=== PATIENT | male | born 1935 | race Caucasian/White ===

== ENCOUNTER 2016-04-24 17:42 | Emergency (ER) | payer MEDICARE, OTHER ==
[~2016-04-24 17:42] MED LIST: ACTOS DPS30 MG PO; BACTRIM DS DPS1 TAB PO; CALCIUM + VITA1 EACH PO; COZAAR DPS25 MG PO; FISH OIL 1,2001 EACH PO; GLUCOPHAGE1000 MG PO; GLUCOTROL DPS5 MG PO; LASIX DPS20 MG PO; OCUVITE SOFTGE1 EACH PO; OSTEO BI-FLEX1 EAC1 PO; PRAVACHOL80 MG PO; PRILOSEC40 MG PO; PROSCAR DPS5 MG PO; PROVENTIL HFA6.7 GM IH; SYMBICORT160 MCG/6 IH; SYSTANE 0.3-0.440 ML OU; VALTREX1000 MG PO; XALATAN2.5 ML OU
--- NOTE | 2016-04-25 13:07 | ER ---
ADMIT: 04/24/2016 RM/LOC: ER [facility] MR#: [id number] [address] [address] [place] RHYS Hemanth [address] [place] [address] Emergency Room Report SEX: M AGE: 81 : 1935 DATE: 04/24/2016 HISTORY OF PRESENT ILLNESS: The patient is an 81-year-old male with past medical history of COPD, hypertension, diabetes, ALL, who is getting chemotherapy. Last chemo session was on Tuesday, on 20 of April, came here because of the last 3 days, he felt dizzy while standing up. The patient denied any vertigo or spinning room around. The patient denied any head trauma. The patient denied any fever at home. Also, the patient mentioned he has shortness of breath at baseline and he has a history of COPD. The patient denied any increase in the sputum. PHYSICAL EXAMINATION: VITAL SIGNS: The patient had O2 saturation of 93% on room air. The patient was afebrile and heart rate was normal and blood pressure systolic was 140s. GENERAL: The patient was in no distress or pain. He is sitting in the bed. Orthostatic vitals are negative. Mucous membranes are slightly dry. HEAD AND NECK: Noncontributory. CHEST: Bilateral mild wheezing without any crackles. S1 and S2 are normal without any murmurs. ABDOMEN: Soft and nontender. SKIN: There are no skin rashes. There is no petechia or ecchymosis. EXTREMITIES: Nontender and there is no swelling. The patient states he previously had swelling which decreased with increased dosage of the Lasix 60 mg daily p.o. The rest of the physical exam was noncontributory. LABORATORY DATA: EKG did not show any ischemic changes or arrhythmia. Cardiac enzymes are negative. White BC from 6.3 changed to 1.7, from December 18 to April 24, with absolute neutrophil count of 500, which could be expected after the vincristine chemotherapy. The patient's blood sugar was 550, considering patient has 60 mg of prednisone after the chemotherapy, the patient received IV fluid 1 L and 5 units of regular insulin. Blood sugar was rechecked. Chest x-ray did not show any changes from April 20. The rest of the lab works were noncontributory. The patient had no signs of infection. Dr. Aguayo, oncologist was contacted, he is the treating physician for this patient. After discussing the case and going through all the lab works, he agreed to plan. The patient could be discharged to home with return precautions, follow up with Dr. Aguayo's office on Tuesday. Plan was discussed with the patient and he agreed upon it and he acknowledged and understood the plan. Eusebia Samayoa MD/ nathan JOB #: [id number] CC: Ramses Drummond MD, Attending Physician Wayne Currie MD, Family Physician
== END 2016-04-24 21:11 | disposition home or self-care (01) ==
LOC: ER 17:42
DX: E86.0 Dehydration (principal); R42 Dizziness and giddiness; E11.9 Type 2 diabetes mellitus without complications; I10 Essential (primary) hypertension; Z88.8 Allergy status to other drugs, medicaments and biological substances; Z79.01 Long term (current) use of anticoagulants; Z79.899 Other long term (current) drug therapy

== ENCOUNTER → 2016-05-05 | Outpatient (CLI) | payer MEDICARE, OTHER | END | disposition home or self-care (01) | LOC: RAD.S 10:00 | DX: C91.00 Acute lymphoblastic leukemia not having achieved remission (principal); J43.9 Emphysema, unspecified; J98.11 Atelectasis ==

== ENCOUNTER 2016-05-08 13:41 | Inpatient (IN) | payer MEDICARE, OTHER ==
[~2016-05-08] VITALS: Ht 188 cm; Wt 110.4 kg
--- NOTE | ~2016-05-08 | ECH ---
Transthoracic Echocardiography Report (TTE) Demographics Patient Name RHYS KOENIG Date of Study 05/10/2016 Patient Number [id number] Visit Number [id number] Date of 1935 Room Number 412 Accession Number [id number] Gender Male Age 81 year(s) Referring Rene Squires Hemanth Fitness Technician Jessie Burrell [facility] Physician MD Kush Garcia Physician Interpreting Rene Fisherosmel Saxena Engineering Technical Analyst Physician Supervising Ordering Physician Kush Villa MD, MD/P Nurse Stress Sign Hanger Supervisor Conclusions Summary Technically fair exam. The estimated left ventricular ejection fraction is 65%. Mild left ventricular hypertrophy. IVC dilated but normal inspiratory collapse. Procedure Type of Study TTE procedure:Echo Complete SF. Procedure Date Date: 05/10/2016 Start: 10:47 AM Technical Quality: Fair due to poor acoustical window. Indications:Atrial fibrillation, Shortness of breath and Hypertension. Appropriate Use Criteria: 9 Height: 74 inches Weight: 229 pounds BSA: 2.3 m Rhythm: Sinus bradycardia HR: 60 bpm BP: 118/51 mmHg M-Mode/2D Measurements LV Diastolic Dimension: 4.34 cm LV Systolic Dimension: 3.13 cm LV Septum Diastolic: 1.03 cm LV PW Diastolic: 1.12 cm AO Root Dimension: 2.92 cm Cardiac Output: 4.98 l/min LA Dimension: 3.53 cm Cardiac Index: 2.17 l/min*m LA volume index: 27 ml/m IVC Inspiration: 1.06 cm LVOT: 1.97 cm RV Base: 3.8 cm LVOT VTI: 27.23 cm RV Mid: 3.3 cm LV Stroke volume: 82.96 ml RV Length: 6.5 cm LV Stroke volume index: 36.07 ml/m TDI-S': 13 cm/s Doppler Measurements AV Peak Velocity: 1.39 m/s MV Peak E-Wave: 1.03 m/s AV Peak Gradient: 7.73 mmHg MV Peak A-Wave: 0.81 m/s AV Mean Gradient: 4.19 mmHg MV E/A Ratio: 1.27 LVOT Peak Velocity: 1.32 m/s MV P1/2t: 59.4 msec AV Area (Continuity):2.86 cm MV Deceleration Time: 244.5 msec MV Area (PHT): 3.71 cm PV Peak Velocity: 1.04 m/s PV Peak Gradient: 4.32 mmHg RA Area: 14.9 cm Findings Left Ventricle The left ventricle is normal in size . Mild left ventricular hypertrophy. Diastolic assessment reveals normal relaxation. Right Ventricle Normal right ventricle structure and function. Left Atrium Normal left atrial size. Right Atrium Normal right atrial size. Mitral Valve Normal mitral valve structure and function. Trivial mitral regurgitation by color Doppler. Aortic Valve The aortic valve was not well imaged but appears mildly sclerotic. There is no aortic regurgitation by color Doppler. Tricuspid Valve Normal tricuspid valve structure and function. Pulmonic Valve The pulmonic valve is not well visualized. Pericardial Effusion No evidence of pericardial effusion. Miscellaneous Visualized portions of the aortic root and ascending aorta appear normal in size. IVC dilated but good collapse. Pleural Effusion No evidence of pleural effusion. Contractility Score LV regional wall motion:(0-Non visualized 1-Normal 2-Hypokinesis 3-Akinesis 4-Dyskinesis 5-Aneurysm) Signature
--- NOTE | 2016-05-11 12:24 | HP ---
ADMIT: 05/08/2016 RM/LOC: 412 [facility] MR#: [id number] [address] [address] RHYS KOENIG [address] [place] [address] History and Physical SEX: M AGE: 81 : 1935 DATE OF SERVICE: CHIEF COMPLAINT: Fever and weakness. HISTORY OF PRESENT ILLNESS: Mr. Koenig is an 81-year-old male, who generally gets his care with Dr. Currie, who unfortunately has a history of acute leukemia. He follows with Oncology, Dr. Aguayo. He had been receiving chemotherapy for this, but over the last 1 week, has had increasing weakness and shortness of breath. He has been evaluated by his oncologist over the past 1 week. This has included a CT scan of the chest as well as an MRI of the brain; however, this was done at an outside facility. His reports that yesterday she spoke with his oncologist and Rhys was actually feeling better. However, shortly after that discussion, Rhys spiked a fever of 101 Fahrenheit. She gave him some [id number] antipyretic medication and the fever did improve. He slept well through the evening, however, today, has continued to be very fatigued and sleeping most of the day. He has been running low-grade fevers just over 100 throughout today. He has had difficulty walking due to generalized weakness. When his had a difficult time waking him, she thought it was best that they come to the Emergency Department for further evaluation. Upon evaluation in the Emergency Department, labs were obtained and was concerning for a significant decrease in his hemoglobin to 5.4, which on May 04 just four days ago was 10.8. Rhys denies any obvious bleeding. He has had no emesis. He has had no hemoptysis. He denies any melena or blood in his stool. He has had some dark color to his urine, but no mo bleeding. No bruising or other skin lesions either. With this finding along with his weakness and shortness of breath, it was felt best that he be admitted for further evaluation and treatment. PAST MEDICAL HISTORY: 1. Acute lymphoblastic leukemia. He has routinely followed with Oncology and has received chemotherapy in the last several weeks. 2. Macular degeneration with history of right central retinal vein occlusion. 3. Gastroesophageal reflux disease with a history of a bleeding ulcer greater than 50 years ago. 4. Chronic hypertension. 5. Diabetes mellitus, type 2, not on insulin where his last hemoglobin in December of 2015 was 7.3. 6. COPD. 7. BPH. 8. Hyperlipidemia. 9. Chronic nocturnal hypoxia requiring 3 to 4 L of oxygen at night. 10.Chronic steroid use with prednisone. MEDICATIONS: 1. Metformin 1000 mg b.i.d. 2. Pravachol 80 mg at bedtime. 3. Prilosec 40 mg daily. 4. Losartan 25 mg daily (Of note, his reports his blood pressures have ADMIT: 05/08/2016 RM/LOC: 412 [facility] MR#: [id number] [address] [address] [place] [address] History and Physical SEX: M AGE: 81 : 1935 been low over the last 1 week, but she has not been giving his losartan). 5. Actos 30 mg daily. 6. Glipizide 5 mg at breakfast and 2.5 mg at dinner. 7. Proventil p.r.n. 8. Calcium 1000 mg twice daily. 9. Vitamin D 1000 International Units twice daily. 10.Multivitamin daily. 11.Osteo Bi-Flex daily. 12.Symbicort 160 mcg twice daily. 13.Finasteride 5 mg daily. 14.Fish oil 1000 mg twice daily. 15.Latanoprost 1 drop to each eye daily. ALLERGIES: NO KNOWN MEDICAL ALLERGIES. FAMILY HISTORY: His father from a stroke. There is also a family history of diabetes. SOCIAL HISTORY: The patient is a former smoker. He lives at home with his . He has several other family members who are involved in his care and are present with him today. Generally, he is able to maintain his own activities of daily living. REVIEW OF SYSTEMS: As per HPI, otherwise reviewed and negative. PHYSICAL EXAMINATION: VITAL SIGNS: Stable. He is afebrile. Blood pressure and heart rate are within normal limits. Please see electronic record for full details. GENERAL: The patient is awake, alert, no acute distress. He does appear sleepy, but does remain awake for his entire history and exam. HEENT: Within normal limits. HEART: Regular rate and rhythm. I do not appreciate any murmur. LUNGS: Diminished throughout, but otherwise clear. I do not appreciate any crackles or wheezes. No accessary muscle use. ABDOMEN: Obese, soft, nontender, nondistended. He does have a soft tissue mass to the left anterior abdominal wall that is nontender and the patient reports is chronic and unchanged. No organomegaly is appreciated, although difficult to assess secondary to body size. Normal bowel sounds. EXTREMITIES: Warm and dry. No edema. NEUROLOGIC: Cranial nerves II through XII grossly intact. No focal neurologic deficit, although I would report his strength at 4/5 in the lower extremities. This is equal bilaterally. SKIN: No obvious rash or lesion. No petechiae or bruising. LABORATORY DATA: Please see electronic record for full details, but of note, his creatinine was within normal limits at 1.0. Blood sugar mildly elevated at 244. LFTs are within normal limits. Magnesium is normal at 1.9. Troponin is less than 0.015. White blood cell count is 3.6 with 700 neutrophils. ADMIT: 05/08/2016 RM/LOC: 412 [facility] MR#: [id number] [address] [address] RHYS KOENIG [address] [place] [address] History and Physical SEX: M AGE: 81 : 1935 Hemoglobin is 5.4 (four days ago on May 04, it was 10.8). Platelet count is 51 down from 61 four days ago. Sodium is slightly low at 132, potassium is normal at 4.6. Urinalysis is unremarkable. Influenza was negative. Procalcitonin was 0.17. EKG shows sinus rhythm. Blood cultures and urine cultures are obtained and pending. IMAGING: Chest x-ray today shows a possible right upper lobe pneumonia. I also reviewed a chest CT scan from 05/05/2016, which shows improvement of adenopathy, but marked emphysematous change. No PE, but there were tiny bilateral distal emboli. ASSESSMENT AND PLAN: 1. Acute anemia. This is suspicious for bleed, but no obvious signs of gastrointestinal bleed at this time. We will start him on an IV PPI and consult General Surgery as well as his usual printing machine operator for further recommendations and evaluation. He will receive 2 units of packed red blood cells, and we will repeat hemoglobin overnight and in the morning to trend. 2. Shortness of breath with right upper lobe pneumonia. He has been started on the pneumonia protocol through the Emergency Department. We will continue with these IV antibiotics. He is also on chronic steroids with prednisone, so we will give IV steroids at this time. We will monitor his procalcitonin and chest x-rays. 3. Generalized weakness. We will have Physical Therapy and Occupational Therapy and Social Work speak with the patient. Hopefully as we treat his anemia and his pneumonia, strength will improve as well. 4. Leukemia. We will consult his general oncologist and appreciate any ADMIT: 05/08/2016 RM/LOC: 412 [facility] MR#: [id number] [address] [facility] [address] [place] [id number] RHYS KOENIG [facility] [place] [address] History and Physical SEX: M AGE: 81 : 1935 recommendations they may have. 5. Type 2 diabetes mellitus. We will monitor blood sugars throughout admission. We will have sliding scale insulin. We will hold his metformin pending any need for contrast. 6. Chronic hypertension. We will monitor blood pressures closely. With this time, I more concerned that he may get hypotensive given his acute illness. We will hold his antihypertensive should this be the case. He is also getting IV fluids to treat as well. 7. Disposition. The patient will be treated in the progressive care unit. We will transfer care to his usual primary care physician, Dr. Currie in the morning. 8. Code status. The patient wishes to be DNR/DNI. Karma Irwin MD/ nathan JOB #: [id number] CC: Wayne Currie, Attending Physician Wayne Currie, Family Physician
--- NOTE | 2016-05-11 17:50 | ER ---
ADMIT: 05/08/2016 RM/LOC: 412 [facility] MR#: [id number] [address] [address] RHYS KOENIG [address] [place] [address] Emergency Room Report SEX: M AGE: 81 : 1935 DATE: 05/08/2016 ADDENDUM: HISTORY OF PRESENT ILLNESS: This patient comes into the ER because he has been weak and short of breath over the last week. He sees Dr. Aguayo every two weeks, he is currently being treated for leukemia. He has been weak. They recently did a CT scan of his chest, which showed possibly some small emboli, they decided not to treat it according to his , and a recent MRI of his head was normal. He denies any coughs, but yesterday, they thought he did have a fever, he seems to be very unsteady and today, he seems slightly confused at times. He has had a decreased appetite, but this has been normal for him. PHYSICAL EXAMINATION: GENERAL: He is pale, but does answer questions and speaks appropriately. VITAL SIGNS: His temp here was 99.1. His O2 sat was 98% and blood pressure was 117/67. LABORATORY AND X-RAY DATA: His CBC came back with hemoglobin of 5.4, last hemoglobin was 10, so this is very low for him, and platelet count was 51. Chest x-ray showed a questionable left lower lobe pneumonia. I did consult with Dr. Hastings concerning treatment of this patient. I ordered 2 units type and cross. I spoke with Dr. Irwin, she came in to examine the patient. DIAGNOSES: 1. Anemia. 2. Weakness. 3. Leukemia. 4. Possible left lower lobe pneumonia. DINA Davis / Shaquille Hastings MD / modcharline JOB #: [id number] CC: Wayne Currie MD, Attending Physician Wayne Currie MD, Family Physician
--- NOTE | 2016-05-14 09:47 | CO ---
ADMIT: 05/08/2016 RM/LOC: 412 [facility] MR#: [id number] [address] [address] RHYS KOENIG [address] [place] [address] Consultation SEX: M AGE: 81 : 1935 DATE OF CONSULTATION: 05/09/2016 ATTENDING PHYSICIAN: Wayne Currie CONSULTING PHYSICIAN: Niranjan Campbell MD REASON FOR CONSULTATION: 1. t-ALL. 2. Severe anemia with acute drop in hemoglobin. HISTORY OF PRESENT ILLNESS: Mr. Koenig is an 81-year-old, pleasant gentleman, a patient of my colleague, Dr. 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 When he was admitted, his hemoglobin was 5 g, he dropped this significantly, which I doubt it is a good number, but anyway he is very weak and tired, so we need to give him blood transfusion. He is receiving 2 units of blood. Oncology was consulted to further evaluate the acute drop in hemoglobin count as well as his T-cell acute leukemia. He is on antibiotics as per primary doctor. PAST MEDICAL HISTORY: T-cell acute leukemia, he was on vincristine and steroid, vincristine does not hold because of the severe fatigue and tiredness as well as not having a good quality of life from the treatment. Multiple other medical problems with COPD, BPH, hyperlipidemia. MEDICATIONS: He is on: 1. Vancomycin. 2. Zosyn. 3. Zithromax. 4. Losartan. 5. Metformin. Please review the medication list for complete. SOCIAL HISTORY: Currently not a smoker. Not a drinker. ALLERGIES: NO KNOWN DRUG ALLERGIES. FAMILY HISTORY: History of diabetes and heart disease in the family. REVIEW OF SYSTEMS: GENERAL: Awake, alert, oriented, not in acute distress. RESPIRATORY: Mild shortness of breath on exertion. CARDIOVASCULAR: No chest pain. ENDOCRINOLOGY: No polyuria, no polydipsia. GASTROINTESTINAL: No nausea, no vomiting. No diarrhea. INFECTION: Positive for fever. NUTRITION: Adequate. SKIN: No rash. PHYSICAL EXAMINATION: VITAL SIGNS: Temperature 100.9, pulse 82, respirations 20, and blood pressure 114/44. ADMIT: 05/08/2016 RM/LOC: 412 [facility] MR#: [id number] [address] [address] [place], [place] [address] Consultation SEX: M AGE: 81 : 1935 HEENT: Normocephalic and atraumatic. LUNGS: Clear. HEART: S1, S2 heard. Regular rate and rhythm. ABDOMEN: Soft, nontender, nondistended. Positive bowel sounds. EXTREMITIES: No edema. NEUROLOGIC: Awake, alert, and oriented x3. SKIN: No rashes. LYMPHATICS: No abnormal lymph nodes palpated. LABORATORY DATA: The blood counts were reviewed and he has acute drop in hemoglobin count. Blood cultures were sent for septic workup. IMPRESSION AND RECOMMENDATIONS: Mr. Koenig is an 81-year-old pleasant gentleman with a history of T-cell acute leukemia was admitted due to acute drop in hemoglobin count, fall, plus sepsis. 1. Acute drop in hemoglobin count, we need to recheck hemoglobin, but he does look like he is symptomatic, therefore needs 2 units of blood transfusion and we will recheck hemoglobin count after transfusion. 2. Sepsis likely source unknown at this point of time. Septic workup was done. Antibiotic is in place. Continue antibiotic as per the primary doctor. 3. T-cell acute leukemia. The treatment on hold. He was having very bad quality of life from the treatment, therefore, his treatment is on hold. His WBC count is low, but is stable. We will watch it tomorrow and probably give him Neupogen or Granix if needed tomorrow after checking his CBC. He is on Solu-Medrol 40 mg twice a day, we will continue that for stress level dose of steroids. I have answered all the questions and concerns. I have spent 55 minutes of my time [id number] and more than 50% of the time was spent in discussing with them, reviewing the chart, discussing the plan, further blood workup, blood transfusion, need of antibiotics with the patient and his in detail. Thank you for your consultation and the opportunity in taking care of your patient. Niranjan Campbell MD/ nathan JOB #: [id number] CC: Wayne Currie, Attending Physician Wayne Currie, Family Physician
--- NOTE | 2016-05-17 12:56 | DS ---
ADMIT: 05/08/2016 RM/LOC: 412 [facility] MR#: [id number] [address] [address] RHYS KOENIG [facility] [place] [address] Discharge Summary SEX: M AGE: 81 : 1935 ADMISSION DATE: 05/08/2016 DISCHARGE DATE: 05/14/2016 ADMITTING DIAGNOSES: 1. Acute anemia. 2. Shortness of breath. 3. Right upper lobe community-acquired pneumonia. 4. Generalized weakness. 5. T-cell acute lymphocytic leukemia. 6. Diabetes mellitus, type 2. 7. Hypertension. 8. Chronic obstructive pulmonary disease. 9. Benign prostatic hypertrophy. 10.Hyperlipidemia. 11.Chronic nocturnal hypoxemia requiring 3-4 L of oxygen at nighttime. 12.Chronic steroid use for treatment of his acute lymphoblastic leukemia. 13.Macular degeneration. 14.Gastroesophageal reflux disease. DISCHARGE DIAGNOSES: 1. Bilateral community-acquired pneumonia. 2. Hypoxemic respiratory failure. 3. Chronic obstructive pulmonary disease, stable. 4. Bilateral pulmonary emboli. 5. Left lower extremity deep venous thrombosis. 6. T-cell acute lymphocytic leukemia lymphoma. 7. Hematuria. 8. Diabetes mellitus, type 2, worse with chronic prednisone use. 9. Depression, poorly controlled. 10.Paroxysmal atrial fibrillation. 11.Macular degeneration. 12.Gastroesophageal reflux disease. 13.Chronic hypertension. 14.BPH (benign prostate hypertrophy). 15.Hyperlipidemia. 16.Chronic nocturnal hypoxemia. CONSULTATIONS: 1. Joe Aguayo MD and Niranjan Campbell MD with Hematology/Oncology, consulted 05/09/2016. 2. Shaw López M.D. with [facility], consulted for paroxysmal atrial fibrillation, 05/10/2016. 3. Gianluca De MD, Urology, consulted for gross hematuria, 05/10/2016. PROCEDURES: None. HISTORY AND PHYSICAL EXAM: Rhys is a very pleasant, 81-year-old, white male who presented to the [facility] Emergency Department on ADMIT: 05/08/2016 RM/LOC: 412 [facility] MR#: [id number] [address] [address] [address] [place] [address] Discharge Summary SEX: M AGE: 81 : 1935 05/08/2016 with complaints of increasing weakness and shortness of breath over approximately the week prior to admission. He had had an outpatient CT scan, which was suspicious for possible pulmonary emboli. A decision was made not to treat him with anticoagulation at that point due to the read on the CT being rather noncommittal about whether these really were pulmonary emboli. He and his noted that he had been spiking fevers to 101 degrees Fahrenheit at home and he had began having a cough and being more and more fatigued. He had been showing generalized weakness and difficulty with walking. ER evaluation was remarkable for findings of a new right upper lobe pneumonia and a rather precipitous decline in his hemoglobin, which had dropped from 10/08 on May 04 down to 5.4 on admission. There were suspicions that he could be losing blood in his stools with this precipitous drop in his hemoglobin and a decision was made to admit him for that to the hospital for IV antibiotics and further evaluation of his anemia. HOSPITAL COURSE: Rhys was started empirically on IV antibiotics including vancomycin and Zosyn. Levaquin was added on day one of the hospital admission Dr. Aguayo with Hematology/Oncology was consulted. The night of admission, Rhys had a rather precipitous increase in his 02 demand and further workup in the ensuing day to two days here in the hospital showed that he did indeed have bilateral pulmonary emboli as well as a left lower extremity deep venous thrombosis. In consultation with Dr. Aguayo, a decision was made to start him on Lovenox 40 mg once daily due to his ongoing thrombocytopenia from his T- cell leukemia lymphoma. On approximately day two to three of hospitalization, Rhys had an overnight period of paroxysmal atrial fibrillation that spontaneously converted back to sinus. Dr. López with [facility] was consulted and a decision was made to place Rhys on amiodarone. They did not feel that a pacemaker was necessary as Rhys did have rates down as low as the 40s and 50s though remained asymptomatic throughout those. Dr. De with Urology was consulted due to concerns that his anemia could potentially be related to blood loss from his tract. It should be noted that a urine on admission was negative for any blood and he did not really have any significant gross hematuria throughout his hospital stay though he did have a history of gross hematuria with even aspirin use. Dr. De' recommendation was for a cystoscopy for further evaluation. Rhys declined this in favor of doing it as an outpatient sometime in the near future. By 05/14/2016, Rhys had remained afebrile for several days. His 02 requirement had stabilized around 3-1/2 L. He was feeling better. His blood counts had stabilized ultimately after 3 units of packed red cells over the course of his hospital stay and a decision was made to discharge him to the [facility] for further rehab. It should be noted that discussions were held with him about his long-term prognosis. He did visit with the supportive care team. He and his understands that he has an incurable condition, which will very likely progress and lead to his ultimate sometime probably in the next one to three months, though it is obviously difficult to say. ADMIT: 05/08/2016 RM/LOC: 412 [facility] MR#: [id number] [facility] [address] [address] [address] [place], [place] [address] [address] Discharge Summary SEX: M AGE: 81 : 1935 DISPOSITION: He is going to be discharged to the [facility] Long-Term Unit. DISCHARGE CONDITION: Poor. MEDICATIONS: Discharge medications will include: 1. Amiodarone 400 mg b.i.d. today only, then transition to 200 mg daily. 2. Prednisone 60 mg daily. 3. Fish oil 1000 mg b.i.d. 4. Calcium and vitamin D supplement b.i.d. 5. Pravachol 80 mg at hs. 6. Proscar 5 mg daily. 7. Senna S two tabs b.i.d. p.r.n. constipation. 8. Multivitamin daily. 9. Zoloft 100 mg daily. 10.Dulera two puffs b.i.d. 11.Proventil HFA two puffs daily. 12.Systane eye drops, one drop in each eye at hs. 13.Xalatan eyedrops one drop in each eye at bedtime. 14.Lantus 20 units subq daily. 15.Lovenox 40 mg subq at hs. 16.NovoLog moderate supplemental insulin scale with Accu-Cheks AC and hs. 17.Nystatin cream applied topically to affected areas q.i.d. until cleared. 18.Levaquin 750 mg p.o. daily for the next three days. 19.Maalox 30 mL q.6h p.r.n. 20.Tylenol 650 mg q.4 hours p.r.n. 21.DuoNeb every 2 hours as needed. 22.Omeprazole 40 mg daily. 23.Lasix 40 mg daily. ADDITIONAL CARES: He will have PT OT evaluate and treat while he is over at the Long-Term Unit. He will also have respiratory therapy follow to evaluate any ongoing 02 needs and titrate his 02 sats 88-92%. He will have a general diet. Accu-Cheks AC and hs. He is to have a chest x-ray in one to two weeks post discharge, and a CBC BMP on 05/18/2016. He is a DNR/DNI. FOLLOW UP: He is to follow up with Dr. Aguayo on Tuesday, 05/18. I have asked that he follow up with Dr. De with Urology in two to three weeks and with [facility] in two weeks. I will see him back in my clinic in one week. Wayne Currie MD/ flavia JOB #: [id number] CC: Wayne Currie MD, Attending Physician Wayne Currie MD, Family Physician
--- NOTE | 2016-05-21 17:29 | CO ---
ADMIT: 05/08/2016 RM/LOC: 412 [facility] MR#: [id number] [address] [address] RHYS KOENIG [address] [place] [address] Consultation SEX: M AGE: 81 : 1935 DATE OF CONSULTATION: 05/10/2016 ATTENDING PHYSICIAN: Wayne Currie CONSULTING PHYSICIAN: Shaw López MD REASON FOR CONSULT: AFib. Nica Navarro RN scribing for Shaw López MD HISTORY OF PRESENT ILLNESS: Rhys is a pleasant 81-year-old gentleman whom I have been asked to see in Cardiology consultation by Dr. Currie for atrial fibrillation. He has no prior history of coronary artery disease. He followed with Dr. Hernandez in 2009 for high blood pressure and hyperlipidemia, and was following on an as needed basis. He did have Lexiscan stress test in November of 2011 which was negative for ischemia. His risk factors include former tobacco abuse, quitting in 2004; hypertension; hyperlipidemia; and diabetes along with family history of stroke for him. Rhys was admitted to [facility] on the 08 of May for increased weakness, fever, and shortness of breath. He has history of ALL and is seeing Oncology for that. He has undergone 3 treatments with chemotherapy but was taking a break as he was not tolerating the treatment well. He was anticipating getting started back on chemotherapy with Dr. Aguayo when his counts got better. However, on admission, he was found to be severely anemic with a hemoglobin of 5.4, which sounds like 4 days ago was 10.8. He also has low white blood cell count and platelet count as well. He has a pneumonia currently and complains of dizziness off and on. He describes it more of a balance disturbance than lightheadedness. He has described pressure in his chest during chemotherapy with Dr. Aguayo, however, he denies any during this hospital stay and cardiac enzymes x1 have been negative. Rhys did have echocardiogram in February at the [facility] that demonstrated ejection fraction of 60% to 65% with no wall motion abnormalities, and trace mitral regurgitation. He did have repeat echocardiogram during this hospitalization and those results are pending. During his hospital stay, he did go into atrial fibrillation with rapid ventricular rate and also had episodes where he converted to sinus rhythm and during the evening, had sinus bradycardia with heart rates in the 30s. He denies any palpitations or current chest discomfort. He does have shortness of breath and significant peripheral edema. Denies any orthopnea. PAST MEDICAL HISTORY: Includes ALL, hypertension, hyperlipidemia, diabetes, former tobacco use, nocturnal hypoxia requiring 3-4 L/minute of oxygen, COPD, seasonal allergies, hearing loss requiring hearing aids, bilateral cataracts status post extraction, bilateral glaucoma, chronic polyps of colon, stomach ulcers, history of gallbladder problems status post cholecystectomy, BPH, hematuria, degenerative joint disease, osteoarthritis, acute anemia and depression. ADMIT: 05/08/2016 RM/LOC: 412 [facility] MR#: [id number] [address] [place] [id number] [address] RHYS Hemanth [address] [place] [address] Consultation SEX: M AGE: 81 : 1935 PAST SURGICAL HISTORY: Includes herniorrhaphy, appendectomy, bilateral cataract extraction, tonsillectomy with adenoidectomy, TURP, cholecystectomy. ALLERGIES: NO KNOWN MEDICATION ALLERGIES. MEDICATIONS: Current in-hospital medications include: 1. Actos 30 daily. 2. Glucotrol 5 in the morning, 2.5 in p.m. 3. Fish oil b.i.d. 4. Calcium with D 1000/250 b.i.d. 5. Proscar 5 daily. 6. Multivitamin daily. 7. Zoloft 50 daily. 8. Proventil inhalation daily. 9. Xalatan drops 0.005% both eyes at bedtime. 10.NovoLog sliding scale insulin a.c. and at bedtime. 11.Nystatin q.i.d. topically. 12.Levaquin 750 mg IV q.24 hours. 13.Vancomycin 1.25 g IV q.12 hours. 14.Zosyn 3.375 g IV q.8 hours. 15.Pravachol 80 mg p.o. at bedtime. FAMILY HISTORY: Positive family history of diabetes, positive family history of cancer in mom who had breast cancer, and positive family history of stroke in father who from that. SOCIAL HISTORY: Rhys is , he lives at home with his Lynne. He is retired recently. No alcohol, drug, or tobacco use. He quit smoking in 2004. REVIEW OF SYSTEMS: GENERAL: Reports increased fatigue, recent fever, weight is unchanged. EYES: Bilateral glaucoma, bilateral cataracts, status post extraction. THROAT, MOUTH, and EARS: Seasonal allergies. Severe hearing loss with bilateral hearing aids in place. RESPIRATORY: History of COPD, history of nocturnal hypoxia on 3-4 L of oxygen at night. He is on chronic steroid use for his lungs as well. GASTROINTESTINAL: History of chronic polyps, stomach ulcers, gallbladder disease status post cholecystectomy. Denies any trouble swallowing or acid reflux. GENITOURINARY: Current issues with hematuria, history of BPH. Denies any urinary tract infection issues. MUSCULOSKELETAL: History of osteoarthritis, degenerative joint disease. Denies any gout. ENDOCRINE: Positive for diabetes. TSH was low at 0.261. HEMATOLOGY: Acute anemia on admit, hemoglobin now 9.0. History of leukemia, ALL, following with Oncology. NEUROLOGY: Denies chronic headaches, dizziness, syncope, stroke, seizures or ADMIT: 05/08/2016 RM/LOC: 412 [facility] MR#: [id number] [facility] [address] [address] [address] [place], [place] [address] [address] Consultation SEX: M AGE: 81 : 1935 numbness or tingling. PSYCHIATRIC: History of depression. Denies any anxiety. PHYSICAL EXAMINATION: VITAL SIGNS: Blood pressure 118/51, heart rate 62, respirations 18, temperature 96.6, and oxygenation 91% on O2. SKIN: [place], warm and dry. EYES: Sclerae clear. No xanthelasmas. ENT: Oral mucosa is pink and moist. No jugular venous distention or carotid bruits. CHEST: Respirations are even and unlabored. Lungs are clear to auscultation. HEART: Regular rate and rhythm. Normal S1, S2. No murmurs, rubs or gallops. ABDOMEN: Soft and nontender. MUSCULOSKELETAL: Gait is normal. EXTREMITIES: Peripheral pulses palpable. Moderate pitting edema bilaterally. No cyanosis or clubbing. PSYCHIATRIC: Alert and oriented. Mood and affect are appropriate. GENERAL: Alert very hard of hearing. DIAGNOSTIC DATA: Chest x-ray on 05/10/2016, showed bilateral ground-glass opacities. Sodium 133, potassium 4.5, BUN 17, creatinine 0.8, glucose 317, AST 14, ALT 52, and magnesium 2.2. White blood cell count 2.0, hemoglobin 9.0, hematocrit 25.7, platelets 47. CK 68, MB 1.5, troponin less than 0.015. TSH 0.261. ASSESSMENT/PLAN: 1. Newly diagnosed paroxysmal atrial fibrillation. 2. Anemia. 3. Pneumonia. 4. ALL (acute lymphocytic leukemia). 5. Hypertension. 6. Hyperlipidemia. 7. Diabetes. Rhys is a pleasant 81-year-old gentleman, with no prior cardiac history. He is being actively treated for ALL. He has shortness of breath. He was found to be anemic with fever and went into atrial fibrillation. He has converted with some following bradycardia for which he has been asymptomatic. His new atrial fibrillation is not surprising with longstanding hypertension, ADMIT: 05/08/2016 RM/LOC: 412 [facility] MR#: [id number] [address] [place] [address] RHYS KOENIG [address] [place] [address] Consultation SEX: M AGE: 81 : 1935 diabetes, and acute illness with recent chemo. He did have some mild bradycardia, but no indication at this point for permanent pacemaker. I would like to start him on amiodarone for rhythm control and we will load him with loading dose of 400 mg p.o. b.i.d. at this time. No anticoagulation due to ALL, anemia, hematuria, and pancytopenia. I will recheck EKG in the morning and he will continue on telemetry. Thank you for the consultation. I have read and agree with the documentation that has been completed regarding this visit. By signing this record, I attest that the documentation was completed in my physical presence and is an accurate record of the encounter. Nica Navarro RN / Shaw López MD / nathan JOB #: [id number] CC: Wayne Currie, Attending Physician Wayne Currie, Family Physician
--- NOTE | 2016-05-24 11:38 | CO ---
ADMIT: 05/08/2016 RM/LOC: 412 [facility] MR#: [id number] [address] [address] RHYS KOENIG [address] [place] [address] Consultation SEX: M AGE: 81 : 1935 DATE OF CONSULTATION: 05/10/2016 ATTENDING PHYSICIAN: Wayne Currie CONSULTING PHYSICIAN: Gianluca De MD REASON FOR CONSULTATION: History of gross hematuria. SUBJECTIVE: The patient is a pleasant, 81-year-old, white male, who is currently being treated for ALL. He was recently admitted with a hemoglobin of 5.4. He did undergo transfusion. Hemoglobin has been stable since that time. The patient does have a history of benign prostatic hypertrophy. He has underwent transurethral resection of prostate gland x2, under the care of Dr. Lester in [place]. The last intervention was approximately 10 years ago. The patient states that overall, his voiding pattern is stable. Denies any significant obstructive, irritative, or voiding symptoms. No history of urinary incontinence. He does have a history of urinary tract infection with a Klebsiella pneumoniae UTI documented by culture back in May 2015. No other positive cultures are noted in the chart at present. His most recent culture on the is negative for infection. Urinalysis on the was unremarkable for any type of infection or even microscopic hematuria. The patient in the last 6 months denies any significant occurrences of what he would term gross hematuria. The patient states that his urine has appeared dark at times but definitely not grossly bloody. I do believe that he has a reference point for this because he states prior to his last transurethral resection of the prostate gland, he was having intermittent gross hematuria on a fairly frequent basis. Again, this was greater than 10 years ago. The last significant microscopic hematuria noted on urinalysis was again associated with a urinary tract infection back in May of 2015, but all subsequent urinalyses in March and April as well as previous urinalyses in 2012 were unremarkable for any significant microscopic hematuria. The patient did have a CT scan which demonstrates normal upper tracts without evidence of stone, hydronephrosis, or mass. There was an enlarged prostate gland. At the bladder neck, there was evidence of TUR defect. There is diffuse bladder wall thickening and this is most consistent with just chronic bladder outlet obstructions would be evidenced by needing 2 previous transurethral resection of prostate gland. I do not feel, at this point, that there is any obvious evidence for either microscopic or gross hematuria leading to this significant anemia. PHYSICAL EXAMINATION: GENERAL: The patient is in no apparent distress. ABDOMEN: Soft without suprapubic mass or tenderness. No guarding or rebound. No palpably distended bladder. GENITOURINARY: The patient is uncircumcised. Testes descended bilaterally without mass or tenderness. He does have some erythema in the groin folds consistent with tinea cruris. RECTAL: Exam is deferred as patient is up in his chair and just did not have the energy to stand today. ADMIT: 05/08/2016 RM/LOC: 412 [facility] MR#: [id number] [address] [place] [address] [facility] [place] [address] Consultation SEX: M AGE: 81 : 1935 LABORATORY DATA: Serum creatinine 0.8. Hemoglobin 9.0, on admit it was 5.4. He did receive a 2-unit packed red blood cell transfusion. Urinalysis on the demonstrated a pH of 5, 5 white cells, otherwise clear. Urinalysis on the demonstrated similar findings. Urinalysis on April [address] scan as outlined above. ASSESSMENT: 1. Anemia. I do not believe that this is influenced by any urologic findings at present. The CT scan demonstrates normal upper tracts. Bladder wall thickening is likely a consequence of just chronic bladder outlet obstruction. He does have prostate gland enlargement. This bleeding is likely influenced by nodular regrowth after TURP x2. He is on Proscar. The patient denies any significant difficulties at present. His urinalysis over the last couple of weeks has been quite frankly unremarkable. 2. Benign prostatic hypertrophy. Likely has nodular regrowth explaining his intermittent hematuria. Fortunately, his voiding pattern is stable. 3. Bladder wall thickening likely secondary to chronic bladder outlet obstruction. RECOMMENDATIONS: 1. I have discussed cystoscopy with the patient just to definitively evaluate urethra, prostatic urethra, as well as rule out any intraluminal bladder pathology. I did offer to do this tomorrow for the patient on an inpatient basis. He states he is simply too weak and has too much going on at present to concern himself with cystoscopic evaluation at this point. I did discuss with the patient we will make arrangements to see him in 2-3 weeks after discharge. We will set up a diagnostic cystoscopy on an outpatient basis. 2. Would continue with Proscar. 3. No other recommendations for either therapeutic intervention or further evaluation. Gianluca De MD/ nathan JOB #: [id number] CC: Wayne Currie, Attending Physician Wayne Currie, Family Physician
--- NOTE | 2016-06-09 10:44 | CO ---
ADMIT: 05/08/2016 RM/LOC: 412 [facility] MR#: [id number] [address] [address] S[facility] RHYS Saxena [address] [place], [place] [address] Consultation SEX: M AGE: 81 : 1935 DATE OF CONSULTATION: 05/08/2016 ATTENDING PHYSICIAN: Wayne Currie CONSULTING PHYSICIAN: Pantera Pierson MD CHIEF COMPLAINT: Anemia. HISTORY: This is a pleasant 81-year-old male patient of Dr. Karma Irwin, I was asked to see in surgical consultation. The patient came in today with what sounds like pretty profound anemia, hemoglobin down to 5.4. He does have recent diagnosis of leukemia it sounds like. His last hemoglobin that I see on the chart was on 05/04/2016. His hemoglobin at that time was 10.8. The patient and his and daughter deny any obvious sequelae of blood loss. No hematemesis, no hematochezia, no melena, so I was asked to see him in surgical consultation for possible GI blood loss. He has not had any Hemoccult testing done yet. His daughter states his urine has been very red and dark. When checking the UA, it looks like his red blood cells were only 1 on that but he does have a lot of glucose in his urine and some rare mucus. PAST MEDICAL HISTORY: Illnesses again include the leukemia and anemia. MEDICATIONS: All well outlined on the chart. PHYSICAL EXAMINATION: GENERAL: He is a little somnolent but able to answer some questions. He is not complaining of any abdominal pain. No nausea, no vomiting, no bloody stools. No melena. ABDOMEN: Obese. It is soft. It is nondistended and nontender throughout. EXTREMITIES: Warm and pink with some mild edema. ASSESSMENT: Anemia, question gastrointestinal blood loss. PLAN: We are going to check some Hemoccult on him. His UA has already been done, does not show any blood loss there. I am not sure if he is actually losing blood from his gut or was due to his leukemia and his other illness. We will check the Hemoccult and if that comes back positive, we will have to consider upper and lower endoscopies on him. It should be noted, his last colonoscopy was in 2012 and his says that looked okay. Pantera Pierson MD/ nathan JOB #: [id number] CC: Wayne Currie, Attending Physician Wayne Currie, Family Physician
== END 2016-05-14 13:09 | DRG 190 ==
LOC: ER 13:41 → 4PCU 16:25
PROVIDERS: ADMIT Family Medicine
PROC: 30233N1 Transfusion of Nonautologous Red Blood Cells into Peripheral Vein, Percutaneous Approach (ICD-10-PCS; principal; 2016-05-08)
DX: J44.0 Chronic obstructive pulmonary disease with (acute) lower respiratory infection (principal); J96.01 Acute respiratory failure with hypoxia; I26.99 Other pulmonary embolism without acute cor pulmonale; J18.9 Pneumonia, unspecified organism; I82.412 Acute embolism and thrombosis of left femoral vein; C91.00 Acute lymphoblastic leukemia not having achieved remission; D69.6 Thrombocytopenia, unspecified; Z99.81 Dependence on supplemental oxygen; I48.0 Paroxysmal atrial fibrillation; B35.6 Tinea cruris; I10 Essential (primary) hypertension; E11.9 Type 2 diabetes mellitus without complications; F32.9 Major depressive disorder, single episode, unspecified; D63.0 Anemia in neoplastic disease; H35.30 Unspecified macular degeneration; K21.9 Gastro-esophageal reflux disease without esophagitis; N40.0 Benign prostatic hyperplasia without lower urinary tract symptoms; H91.93 Unspecified hearing loss, bilateral; H40.9 Unspecified glaucoma; M19.90 Unspecified osteoarthritis, unspecified site; E78.5 Hyperlipidemia, unspecified; Z79.52 Long term (current) use of systemic steroids; Z79.84 Long term (current) use of oral hypoglycemic drugs; Z87.891 Personal history of nicotine dependence; Z87.11 Personal history of peptic ulcer disease; Z86.010 Personal history of colon polyps; Z66 Do not resuscitate

== ENCOUNTER 2016-05-14 08:11 | Inpatient (IN) | payer MEDICARE, OTHER ==
[~2016-05-14] VITALS: Ht 188 cm; Wt 105.0 kg
--- NOTE | 2016-05-30 11:49 | NUR ---
PATIENT IS ABLE TO DRAW UP INSULIN, BUT UNABLE TO SEE THE LINES TO DRAW UP THE CORRECT AMOUNT. PATIENT IS ABLE TO GIVE OWN SHOT INTO THE STOMACH WITHOUT DIFFICULTY.
--- NOTE | 2016-05-31 08:17 | NUR ---
INTERVIEW FOR MDS 3.0-PT.IS ALERT, ORIENTED AND COGNITION IS INTACT. PT. KNOWS THE YEAR, MONTH AND DAY OF THE WEEK. PT. CAN REPEAT AND RECALL ALL THREE WORDS WITHOUT CUES. (MDS INTERVIEW WAS DONE ON 05/27/16) PT. DENIES DEPRESSION, STATES HIS APPETITE IS GOOD AND SLEEPS PRETTY GOOD AT NIGHT. PRIOR TO HOSPITALIZATION AND BEING HERE AT [facility], PT. WAS INDEPENDENT AT HOME, DROVE, CARE FOR HIS YARD AND GARDEN, INDEPENDENT IN ALL HIS ADLS AND MOBILITY. PT. LIKES TO BE ABLE TO CHOOSE WHAT HE WEARS DURING THE DAY, LIKES TO SHOWER HE DOES AT HOME, IMPORTANT TO USE THE PHONE IN PRIVATE, DOES NOT CARE OR NEED TO LOCK UP HIS PERSONEL ITEMS, LIKES TO SNACK INBETWEEN MEALS. LIKES TO READ, LIKES TO KEEP UP WITH THE SPORTS, DOES NOT REALLY CARE TO LISTEN TO MUSIC. DOES NOT CARE THAT MUCH FOR PETS. MORE OF A LONER, DOES NOT CARE FOR GROUP ACTIVITIES UNLESS ITS WITH HIS FAMILY. ACTIVE IN THE [place] AND HIS FAVORITE THING TO DO IS GARDENING IN THE SUMMER. PT. GOAL IS TO RETURN HOME WITH HIS . STATES HE HAS NO PAIN. BORN IN [place], WENT TO COLLEGE FOR [employer] AND WORKED IN [employer]. HE HAS BEEN FOR 59 YEARS ON Feb. THEN HAVE 5 CHILDREN, 1 BOY AND 4 GIRLS. 15 GRANDCHILDREN AND 2 GREAT GRANDCHILDREN, A BOY AND A GIRL. HAS ENJOYED HIS STAY HERE, EXCELLENT CARE AND TREATMENT AND COULDN'T ASK FOR ANYTHING MORE. THANKED PT. FOR NICE VISIT AND INTERVIEW.
== END 2016-06-05 14:30 | disposition short-term general hospital (02) | DRG 190 ==
LOC: SNU 13:37
PROVIDERS: ADMIT Family Medicine
DX: J44.0 Chronic obstructive pulmonary disease with (acute) lower respiratory infection (principal); J18.9 Pneumonia, unspecified organism; I26.99 Other pulmonary embolism without acute cor pulmonale; C91.00 Acute lymphoblastic leukemia not having achieved remission; I82.412 Acute embolism and thrombosis of left femoral vein; D69.6 Thrombocytopenia, unspecified; E11.65 Type 2 diabetes mellitus with hyperglycemia; R09.02 Hypoxemia; Z99.81 Dependence on supplemental oxygen; I48.0 Paroxysmal atrial fibrillation; B35.6 Tinea cruris; I10 Essential (primary) hypertension; F32.9 Major depressive disorder, single episode, unspecified; D63.0 Anemia in neoplastic disease; H35.30 Unspecified macular degeneration; K21.9 Gastro-esophageal reflux disease without esophagitis; N40.0 Benign prostatic hyperplasia without lower urinary tract symptoms; H91.93 Unspecified hearing loss, bilateral; H40.9 Unspecified glaucoma; M19.90 Unspecified osteoarthritis, unspecified site; E78.5 Hyperlipidemia, unspecified; Z79.52 Long term (current) use of systemic steroids; Z79.84 Long term (current) use of oral hypoglycemic drugs; Z87.891 Personal history of nicotine dependence; Z87.11 Personal history of peptic ulcer disease; Z86.010 Personal history of colon polyps; Z66 Do not resuscitate

== ENCOUNTER 2016-06-05 15:12 | Inpatient (IN) | payer MEDICARE, OTHER ==
[~2016-06-05] VITALS: Ht 188 cm; Wt 97.7 kg
--- NOTE | 2016-06-07 08:43 | HP ---
ADMIT: 06/05/2016 RM/LOC: 306 [facility] MR#: [id number] [address] [address] RHYS KOENIG [address] [place] [address] History and Physical SEX: M AGE: 81 : 1935 DATE OF SERVICE: CHIEF COMPLAINT: Weakness, increased oxygen needs, and fever. HISTORY OF PRESENT ILLNESS: Mr. Koenig is an 81-year-old male, well known to our clinic as well Oncology for acute leukemia on chemotherapy. He was also recently hospitalized for pneumonia and pulmonary embolism. He has been residing at the [facility]. He received chemotherapy over this last week with his last dose 4 days ago. He did quite well following this round of chemotherapy until this morning. Yesterday his said he was in a good mood and was playing games on his computer. When he woke up this morning, he had increased weakness and nausea. They tried giving antiemetics, but he continued to have severe symptoms and had difficulty even standing from his chair. He complained of shortness of breath. This did not improve with his usual oxygen and breathing treatments. They also noted that he began to run a fever this afternoon. With that, it was recommended that he be brought to the Emergency Department for further evaluation and treatment. Upon evaluation in the Emergency Department, he was found to be hypoxic with oxygen saturations in the 80s on 6 L by nasal cannula. He was placed on BiPAP and symptomatically improved. He has been sleepy, but is arousable. He is not able to answer questions, however, secondary to his drowsiness and current BiPAP use. His family is here including his and daughter to obtain history. In the past week, he has been evaluated by his oncologist as well as primary care physician, Dr. Currie. He has been wanting to continue with chemotherapy and aggressive treatment. He has expressed wishes to be DNR. Family is unsure if he wants to be intubated. They have continued to discuss this, but do not have a decision at this time. PAST MEDICAL HISTORY: 1. 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 2. Diabetes mellitus type 2. 3. Gastroesophageal reflux disease. 4. Chronic hypertension. 5. COPD. 6. BPH. 7. Macular degeneration. 8. Hearing loss. 9. Chronic nocturnal hypoxia with baseline O2 need at night. 10.Chronic steroid use. 11.Hyperlipidemia. MEDICATIONS: 1. Bactrim DS 1 tab Tuesday, Tuesday, and Tuesday. 2. Cordarone 200 mg daily. 3. Prednisone 40 mg daily with taper. 4. Lasix 40 mg daily. ADMIT: 06/05/2016 RM/LOC: 306 [facility] MR#: [id number] [address] [address] RHYS KOENIG [address] [place] [address] History and Physical SEX: M AGE: 81 : 1935 5. Levaquin 500 mg daily. 6. Potassium chloride 20 mEq daily. 7. [place]-3 fish oil 1000 mg twice daily. 8. Calcium and vitamin D 1000 mg twice daily. 9. Pravachol 80 mg daily. 10.Proscar 5 mg daily. 11.Protonix 40 mg daily. 12.Multivitamin daily. 13.VFEND 200 mg twice daily. 14.Zoloft 100 mg daily. 15.Zovirax 400 mg b.i.d. 16.Proventil 2 puffs daily. 17.Symbicort 160 mcg 2 inhaled twice daily. 18.Natural Tears drops daily. 19.Xalatan eyedrops daily. 20.Levemir 24 units at bedtime. 21.Lovenox 40 mg subcu daily. 22.NovoLog sliding scale as well as NovoLog 10 units with meals. ALLERGIES: NONE. SOCIAL HISTORY: Patient currently resides at [facility]. He is and his is here with him today. FAMILY HISTORY: Noncontributory. REVIEW OF SYSTEMS: Unobtainable. PHYSICAL EXAMINATION: VITAL SIGNS: Temperature of 100.9, pulse 97, blood pressure is normal, and oxygen saturation currently is 93% on BiPAP. GENERAL: The patient is drowsy and sleepy, but arousable to voice. He will moan to answer questions, but is not appropriate. He is unable to answer any orientation questions. HEART: Regular rate and rhythm. No murmurs. LUNGS: Diminished throughout and coarse at the bases. ABDOMEN: Soft, nontender, and nondistended. Normal bowel sounds. EXTREMITIES: Warm and dry. No edema. NEUROLOGIC: Unobtainable. SKIN: No rash or other skin lesion noted. LABORATORY DATA: Reviewed. IMAGING: Chest x-ray is reviewed. ASSESSMENT AND PLAN: 1. Probable pneumonia. We will broaden antibiotics. We will continue with BiPAP. We will consult Critical Care. 2. Acute respiratory failure secondary to #1. Appreciate Critical Care ADMIT: 06/05/2016 RM/LOC: 306 [facility] MR#: [id number] [address] [place] [id number] [place] [address] History and Physical SEX: M AGE: 81 : 1935 consult and Pulmonology consult regarding further management of his respiratory status. 3. Probable sepsis. We will continue to treat infection as above. 4. Hyponatremia. IV fluids are being given. 5. Acute kidney injury with increased creatinine. We will monitor with IV fluids. 6. History of pulmonary embolism on anticoagulation. We will continue his current anticoagulation. 7. Diabetes mellitus type 2. We will continue with sliding scale insulin, but given no oral intake, we will hold his other insulin to prevent hypoglycemia. 8. Chronic obstructive pulmonary disease. We will continue his inhalers. 9. Chronic steroids. We will change to IV steroid. 10.Code status. I did have a long discussion with the family regarding his critical status and poor prognosis given his incurable malignancy. We will continue with the DNR per patient wishes. Did discuss DNI status, but family is undecided at this time. They will continue discussions and let us know their decision. We will consult palliative care and they are agreeable to this consult. DISPOSITION: The patient will be monitored in the ICU overnight. We will transition care to his usual primary care provider Dr. Currie in the morning. Karma Irwin MD/ nathan JOB #: [id number] CC: Wayne Currie, Attending Physician Wayne Currie, Family Physician
--- NOTE | 2016-06-08 11:53 | CO ---
ADMIT: 06/05/2016 RM/LOC: 306 [facility] MR#: [id number] [address] [address] RHYS KOENIG [address] [place] [address] Consultation SEX: M AGE: 81 : 1935 DATE OF CONSULTATION: 06/07/2016 ATTENDING PHYSICIAN: Wayne Currie CONSULTING PHYSICIAN: Deisy Aponte APRN TIME IN: 1035 hours. TIME OUT: 1055 hours. REASON FOR CONSULTATION: Supportive care consultation was requested by Dr. Currie for discussion of goals for care. HISTORY OF PRESENT ILLNESS: Rhys is a very pleasant 81-year-old male, with the unfortunate history of acute leukemia for which he has been receiving palliative chemotherapy. He was recently hospitalized in April of 2016 for bilateral pulmonary embolism and pneumonia. At that time, supportive care consultation was requested and due to the fact that the [employer] was unavailable our supportive care nurse did meet with the patient to discuss goals and to complete a POLST form. He [facility] and continued chemotherapy. He was admitted on 06/05 back to the hospital with weakness and increasing oxygen needs as well as fever. He is being treated for pneumonia and sepsis. He was started on BiPAP therapy, however, he is currently tolerating nasal cannula. He did have initial acute kidney injury, however this is improving as well. He has positive for human metapneumovirus. Oncology has seen the patient, at this time, feels that there are no further good treatment options available for his care. At this point, the recommendation is hospice consideration. Due to the patient's complexities, supportive care consultation was requested to discuss goals for care. In terms of advanced directives, the patient is a do not resuscitate/do not intubate status. He does have a living will as well as durable power-of- tax associate attorney for health care on file. The patient's , Lynne Koenig, whose phone# [phone] is the patient's primary healthcare lumsd-ha-[id number]. His I believe daughter Christina Pierre, whose phone# [phone] is his successor healthcare [id number]-[id number]. We also have a POLST form on file that was completed as mentioned during his last stay. Symptomatically, the patient is very weak and debilitated. He denies pain or shortness of breath. He is fatigues extremely easily. PAST MEDICAL HISTORY: 1. 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 2. Diabetes mellitus type 2. 3. GERD. 4. Chronic hypertension. 5. COPD. 6. BPH. ADMIT: 06/05/2016 RM/LOC: 306 [facility] MR#: [id number] [address] [address] [address] [address] [place] [address] Consultation SEX: M AGE: 81 : 1935 7. Macular degeneration. 8. Hearing loss. 9. Chronic nocturnal hypoxia with baseline oxygen needs at night. 10.Chronic steroid use. 11.Hyperlipidemia. ALLERGIES: THE PATIENT HAS NO KNOWN MEDICATION ALLERGIES. CURRENT MEDICATIONS: Please see the patient's MAR for specific routes and dosages. His current medications are as follows. 1. NovoLog. 2. Zoloft. 3. Ativan. 4. Phenergan. 5. Zosyn. 6. Nitro-Bid. 7. Levophed. 8. Lovenox. 9. Vancomycin. 10.Glutose. 11.Glucagon. 12.D5 normal saline. 13.D50. 14.Dulera. 15.DuoNeb. 16.Zofran. 17.Protonix. 18.Solu-Cortef. 19.Tylenol. 20.Nitrostat. SOCIAL HISTORY: The patient is . He is a former smoker. He has been living at skilled care most recently. I do not believe he uses alcohol or illicit drugs. FAMILY HISTORY: His dad of a stroke. There is a family history of diabetes. FUNCTIONAL REVIEW: I am not sure what his functional status was at skilled care. Currently, he is bed-bound. He is total care. Intake is minimal. He is very drowsy. His current palliative performance scale is a 20%. REVIEW OF SYSTEMS: A 10-point review of systems was completed and other than those pertinent positives and negatives mentioned the HPI, it is negative. PHYSICAL EXAMINATION: GENERAL: The patient is examined in the bed. He is very fatigued and weak. VITAL SIGNS: Temperature 97.1, pulse 73, respirations 18, blood pressure ADMIT: 06/05/2016 RM/LOC: 306 [facility] MR#: [id number] [address] [address] [place] [address] Consultation SEX: M AGE: 81 : 1935 117/47, oxygen 94% on nasal cannula. HEENT: Head is normocephalic. Pupils are 3 mm and brisk. Oral mucosa pink and moist with fair dentition. NECK: Supple. RESPIRATORY: Respirations are equal and nonlabored. LUNGS: Diminished throughout. CARDIOVASCULAR: Rate and rhythm regular without murmurs, rubs, or gallops. 1+ bilateral lower extremity edema noted. GASTROINTESTINAL: Soft, nontender. Bowel sounds are positive. Last bowel movement was yesterday. GENITOURINARY: He has a Graham draining clear yellow urine. MUSCULOSKELETAL: Generalized weakness. No obvious joint deformities. INTEGUMENTARY: Skin turgor is fair. No rashes or wounds noted. NEUROLOGIC: Fatigued, but will open eyes to voice. He is oriented to place and time. He will follow commands. PSYCHIATRIC: Calm and cooperative. No agitation noted. DIAGNOSTIC DATA: Sodium 133, potassium 4.5, BUN 20, creatinine 1.2, total protein 6.6, albumin 2.1. WBC is 2.6 hemoglobin 6.1, hematocrit 20.2, and platelets are 51. IMPRESSION: 1. Physical debility. 2. Fatigue. 3. Malaise. 4. Lxvkkecj-hu-rzhwjq protein-calorie malnutrition. 5. Weight loss. 6. Acute lymphoblastic leukemia. 7. Respiratory failure. 8. Sepsis. 9. Chronic obstructive pulmonary disease. 10.Diabetes mellitus type 2. 11.History of bilateral pulmonary emboli in April of 2016. 12.Palliative care. 13.The patient is a DNR/DNI. PLAN: At the time of assessment, the patient is very weak and fatigued. He is oriented but falls asleep very easily during conversation. I did call the patient's to introduce myself and role. We did review the patient's overall status and goals for the time ahead. She is aware that at this time there are no other good treatment options available for the patient. We did very briefly discuss the hospice philosophy. The patient's confirms that ADMIT: 06/05/2016 RM/LOC: 306 [facility] MR#: [id number] [address] [address] RHYS KOENIG [address] [place] [address] Consultation SEX: M AGE: 81 : 1935 the patient is to be a do not resuscitate/do not intubate status. At this point, she is waiting on more family members to arrive this afternoon, therefore, we will meet as a group this afternoon at 1500 hours to further review goals and options for the time ahead. Overall, the patient is very hospice eligible and appropriate, should they decide to proceed in this manner. We would like to thank Dr. Currie for the invitation to participate in this patient's care. Total consultation time so far is 20 minutes with 15 minutes from 1040 hours to 1055 hours spent reiu-tr-jjkd with the patient or on the phone with the patient's discussing goals for care and providing counseling and support. We will continue to follow. Deisy Aponte APRN/ nathan JOB #: [id number] CC: Wayne Currie, Attending Physician Wayne Currie, Family Physician
--- NOTE | 2016-06-09 08:25 | CO ---
ADMIT: 06/05/2016 RM/LOC: 306 [facility] MR#: [id number] [address] [address] SIL[facility] RHYS Hemanth [address] [place] [address] Consultation SEX: M AGE: 81 : 1935 DATE OF CONSULTATION: 06/06/2016 ATTENDING PHYSICIAN: Wayne Currie CONSULTING PHYSICIAN: Himanshu Rivas DO REASON FOR HOSPITALIZATION: Pneumonia, sepsis. HISTORY OF PRESENT ILLNESS: An 81-year-old male, patient of Dr. Currie, who was admitted with respiratory failure, sepsis, and pneumonia. He has a history of acute lymphocytic leukemia. He also has underlying history of pneumonia, pulmonary embolism, diabetes mellitus, reflux disease, COPD, hypertension, hyperlipidemia on chronic steroid therapy. He has been admitted into the intensive care unit and Dr. Currie and Dr. Gaytan are providing supportive cares and broad-spectrum antibiotic therapy in treatment of his sepsis, but he was found to have a metapneumovirus on his respiratory infectious panel. Dr. Yusuf was asked to see the patient to consider whether he would be a candidate for ribavirin therapy. The patient is currently n.p.o. for concerns about possible aspiration. PHYSICAL EXAMINATION: GENERAL: He is poorly arousable, but does awaken to tell caretakers that he does need to urinate. He is a bit agitated. HEART: Regular. LUNGS: Reveal basilar crackles. ABDOMEN: Soft LABORATORY DATA: Reviewed, showing a white blood count 2.9, hemoglobin of 8.2, platelets of 51,000. He has a sodium of 129, potassium 4.6, BUN 26, creatinine 1.4, his blood sugar is 267. His chest x-ray shows bibasilar progression of infiltrate and inflammatory changes with aspiration being ADMIT: 06/05/2016 RM/LOC: 306 [facility] MR#: [id number] [address] [address] RHYS KOENIG [facility] [place] [address] Consultation SEX: M AGE: 81 : 1935 possibility. IMPRESSION: Metapneumovirus positive, underlying pneumonia sepsis with immunocompromise. PLAN: At this point, there is no proven benefit to the use of ribavirin in metapneumovirus. None the less, he is n.p.o., and is not able to take any oral medications and really is not a candidate for inhaled ribavirin at this time, so for this reason, we will hold on this possibility. There is also some discussion in the literature about the possible use of IVIG. At this point, I will await Dr. Yusuf's input. She will return to the care of this patient tomorrow 06/07/2016. Himanshu Rivas DO/ gusl JOB #: [id number] CC: Wayne Currie, Attending Physician Wayne Currie, Family Physician
--- NOTE | 2016-06-13 21:25 | ER ---
ADMIT: 06/05/2016 RM/LOC: 306 [facility] MR#: [id number] [address] [address] SILV[address]YS [address] [place], [place] [address] Emergency Room Report SEX: M AGE: 81 : 1935 DATE: 06/05/2016 ADDENDUM: See T-sheet for complete H and P. An 81-year-old gentleman, who is currently at [facility], comes in with history of increased shortness of breath, nausea, fever, and feeling weak today. He does have a significant history of T-cell acute lymphoblastic leukemia, for which he gets chemo. His last chemo was four days ago. He also has COPD, hypertension, hyperlipidemia, and has had pneumonia within the past couple of months, requiring admission. He normally is on oxygen at baseline, but has increased oxygen requirements and he was on 6 L at 93% when he got here today and feeling quite short of breath. I got an ABG, which shows he is hypoxemic and has a pH of 7.47, pCO2 of 35.4, and PO2 of 57. His CBC showed pancytopenia, which is not new for him. Lactic acid is elevated at 2.9. Chemistries showed a sodium of 128, carbon dioxide 26, BUN of 32, glucose 307, creatinine 1.5. Cardiac enzymes were normal. X-ray showed possibly a right perihilar infiltrate. We did do our sepsis routine on the patient. He was never hypotensive and his lactic was not above 4, so we did not do the aggressive fluid hydration, at 30 mL/kg. He did get IV Levaquin for what could be a pneumonia. He was placed on BiPAP in the Emergency Department and is breathing more comfortably. I did get the patient admitted and spoke to Dr. Irwin as he normally sees Dr. Currie. The patient is admitted to the ICU in critical condition with diagnoses of: 1. Fever. 2. Possible pneumonia. 3. Pancytopenia. 4. T-cell acute lymphoblastic leukemia. 5. Respiratory failure. 6. Hyponatremia. Vahe Van MD/ nathan JOB #: [id number] CC: Wayne Currie MD, Attending Physician Wayne Currie MD, Family Physician
--- NOTE | 2016-06-14 08:26 | DS ---
ADMIT: 06/05/2016 RM/LOC: 428 [facility] MR#: [id number] [address] [address] RHYS KOENIG [address] [place] [address] Discharge Summary SEX: M AGE: 81 : 1935 ADMISSION DATE: 06/05/2016 DISCHARGE DATE: 06/10/2016 ADMITTING DIAGNOSES: 1. Hospital acquired pneumonia. 2. Acute hypoxemic respiratory failure. 3. Severe sepsis. 4. Hyponatremia. 5. Acute kidney injury. 6. History of recent pulmonary embolus. 7. Diabetes mellitus, type 2. 8. Chronic obstructive pulmonary disease. 9. Chronic steroid use. DISCHARGE DIAGNOSES: 1. Hospital acquired pneumonia. 2. Acute hypoxemic respiratory failure. 3. Severe sepsis. 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 6. Chronic high-dose steroid use. 7. Bilateral pulmonary emboli. 8. Diabetes mellitus, type 2. 9. Chronic obstructive pulmonary disease. 10.Dysphagia, secondary to his acute respiratory failure. 11.History of paroxysmal atrial fibrillation. 12.Depression. 13.Gastroesophageal reflux disease. 14.Benign prostatic hypertrophy. 15.Hyperlipidemia. PROCEDURES: None. CONSULTATIONS: 1. Chaya Gaytan MD, Critical Care Medicine, consulted 06/05/2016. 2. Himanshu Rivas D.O. and Dilma Yusuf MD, with Infectious Disease, consulted 06/06/2016. 3. Deisy Aponte APRN, Supportive Care, consulted 06/07/2016. 4. Joe Aguayo MD, Hematology/Oncology, consulted 06/07/2016. HISTORY AND PHYSICAL EXAM: Rhys is a very pleasant, 81-year-old, white male, with known T-cell acute lymphocytic leukemia lymphoma who was receiving high- dose steroids and chemotherapy, who presented to the [facility] Emergency Department on 06/05/2016 with increasing weakness and nausea. Attempts to give antiemetics at the [facility] were provided, but when he began having difficulty breathing and could not stand, he was sent to the ER for evaluation. Upon evaluation in the ER, he was found to be hypoxemic with 02 sats in the 80s, he was placed on BiPAP and improved symptomatically, but then became sleepy and unarousable, would not answer ADMIT: 06/05/2016 RM/LOC: 428 [facility] MR#: [id number] [address] [address] [facility] [address] [place] [address] Discharge Summary SEX: M AGE: 81 : 1935 questions, and a decision was made to admit him to the hospital into the ICU. He did not want to be resuscitated or intubated, but did want to proceed with BiPAP. On his initial exam, he was febrile with a temp a 100.9, pulse 97, normal blood pressure, and he was satting 93% on the BiPAP. He was drowsy, but arousable to voice. HOSPITAL COURSE: Rhys was admitted to the Intensive Care Unit and continued on the BiPAP. He was started on stress dose steroids and intravenous antibiotics. He was started on a supplemental scale insulin for his blood sugars. Over the ensuing 1-2 days, his fevers resolved. His blood pressures improved and we were able to wean down to nasal cannula on his oxygen. Consultations were obtained from his oncologist, Dr. Aguayo, as well as from Infectious Disease and from Dr. Gaytan with Critical Care Medicine. Several long discussions were held with Rhys and his family about his long-term prognosis with regard to his T-cell acute lymphocytic leukemia lymphoma and they were advised that there were no longer any good therapeutic options for his lymphoma and that a meaningful recovery from his respiratory failure and ongoing dysphagia was on unlikely. Recommendations were made to proceed with comfort care and hospice. Over the ensuing 1-2 days, a consultation was obtained from Supportive Care and Rhys and his Sussy as well as their children made a decision to make Rhys comfort care. By the morning of 06/10/2016, Rhys was spiking higher fevers. He had become very restless at times, but this was well managed with the combination of Ativan, morphine, and Haldol. A decision was made to transfer him to the [facility] for hospice management until his . I anticipate that the will be some time in the next several days. DISPOSITION: He will be discharged to the [facility]. CONDITION: Terminal. Wayne Currie MD/ njv JOB #: [id number] CC: Wayne Currie MD, Attending Physician Wayne Currie MD, Family Physician
--- NOTE | 2016-06-14 11:51 | CO ---
ADMIT: 06/05/2016 RM/LOC: 306 [facility] MR#: [id number] [address] [address] RHYS KOENIG [address] [place] [address] Consultation SEX: M AGE: 81 : 1935 DATE OF CONSULTATION: 06/07/2016 ATTENDING PHYSICIAN: Wayne Currie CONSULTING PHYSICIAN: Joe Aguayo MD REASON FOR CONSULTATION: Acute lymphoblastic leukemia, T-cell. HISTORY OF PRESENT ILLNESS: Mr. 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 He has been receiving weekly flat dose vincristine in addition to prednisone at 60 mg every day. Last week, we had begun a taper of the prednisone with the position of proximal muscle myopathy contributing to his thigh weakness and difficulty in his rehabilitation stay at the [facility] facility. Two days ago, the patient was admitted with a rather sudden onset of fevers, weakness, and nausea. Evaluation in the ER led to discovery of infection with human metapneumovirus and landed him in the ICU with BiPAP therapy. This morning, he is off BiPAP thankfully and requiring 6 L via nasal cannula. He is fairly sleepy during my conversation with him and his . He complains of dry mouth and requests a drink, but he remained n.p.o. due to fear of aspiration events. His , Lynne, expresses that she had felt encouraged with some of the improvement that he had made but admitted he still was not quite able to return home due to weakness and some decline overall. In her assessment, the chemotherapy has been working on his counts and not particularly causing any direct toxicities that they can in things on. They are realistic about his overall prognosis and have elected to be DNR during this hospital stay. PAST MEDICAL HISTORY: 1. T-ALL. 2. Diabetes. 3. GERD. 4. Hypertension. 5. COPD. 6. BPH. 7. Chronic oxygen needs secondary to COPD. 8. Chronic steroid use. 9. Hyperlipidemia. MEDICATIONS: 1. Bactrim DS 1 tab Tuesday, Tuesday, Tuesday. 2. Acyclovir 400 mg b.i.d. 3. Voriconazole 200 mg b.i.d. 4. Prednisone 40 mg, currently under taper. 5. Lasix 40 mg daily. 6. Levaquin 500 mg daily. 7. Potassium 20 mEq daily. 8. Buchanan-3 fish oil 1 g twice daily. 9. Calcium and vitamin D 1 g twice daily. 10.Pravachol 80 mg daily. ADMIT: 06/05/2016 RM/LOC: 306 [facility] MR#: [id number] [id number] [address] [facility] [place] [place] [address] Consultation SEX: M AGE: 81 : 1935 11.Proscar 5 mg daily. 12.Protonix 40 mg daily. 13.Multivitamin. 14.Zoloft 100 mg daily. 15.Albuterol 2 puffs daily. 16.Symbicort 160 mcg inhaled twice daily. 17.Levemir 24 units at bedtime. 18.Lovenox 40 mg subcutaneous daily. 19.NovoLog sliding scale plus 10 units with meals. ALLERGIES: NO KNOWN MEDICAL ALLERGIES. SOCIAL HISTORY: The patient is temporary residing at [facility]. He is from [place]. to Lynne with several children who have been involved in his care thus far. No significant alcohol or smoking history. FAMILY HISTORY: Reviewed and noncontributory. REVIEW OF SYSTEMS: Unable to obtain a complete and thorough review of systems due to the patient's lethargic state. Review of nursing notes, speaking with nurse and reveal no other pertinent symptoms in the review of systems. PHYSICAL EXAMINATION: VITAL SIGNS: Temp 98.7, pulse 75, respiratory rate 18, blood pressure 130/51, saturating 93% on 6 L nasal cannula. GENERAL: This is an elderly ill-appearing male lying flat in bed with nasal cannula on. He is able to vocalize a few complaints, then falls back to sleep rather easily. He is not alert or orientated x3. NECK: Trachea is midline. No cervical lymphadenopathy. No right submandibular lymphadenopathy as this has resolved. HEENT: Pupils are equal, round, and reactive to light. Mouth shows dry mucous membranes. No oral lesions. HEART: Regular rate and rhythm with no murmurs, rubs, or gallops. LUNGS: Decreased breath sounds in the bases bilaterally. Expiratory wheeze mild noted bilaterally. ABDOMEN: Soft, nontender to palpation, nondistended. Bowel sounds positive. EXTREMITIES: No clubbing, no cyanosis, no edema. They are warm and dry. SKIN: Diffuse dry flaky skin. Otherwise, no significant rash or skin lesions noted. NEUROLOGIC: Unable to participate in complete neurologic exam. Sensorium described above. LABORATORY AND X-RAY DATA: WBC 2.6, hemoglobin 6.8, decreased from 8.2 yesterday, platelets 51. Sodium 133, potassium 4.5, bicarb 28, BUN 20, creatinine 1.2, albumin 2.1. Respiratory viral panel positive for human metapneumovirus. On 06/07/2016, chest x-ray, impression: Slightly improved aeration at the ADMIT: 06/05/2016 RM/LOC: 306 [facility] MR#: [id number] [address] [place] [id number] [facility] [place] [address] Consultation SEX: M AGE: 81 : 1935 lung bases. IMPRESSION AND RECOMMENDATION: An 81-year-old male with T-ALL. 1. T-cell acute lymphoblastic leukemia. 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 This does not manoj well for toleration of further chemotherapy. Beyond this line of therapy, there exists no good option tolerable chemotherapy for this particularly difficult disease, especially in an 81-year-old. I expressed these concerns and the specific concerns we have with prednisone toxicity with the patient's today. I worried with his continued decline and current hospitalization that he will not be able to recover sufficiently to continue any chemotherapy. I would appreciate all efforts by the Supportive Care team to discuss hospice. I did bring this option up and talked about the basics of hospice with his , Lynne. She would prefer to have this performed in the facility if necessary. The patient does have several adult children scattered across the country, live all, taking turns flying in to be with him and thus would likely require some coordination of the plan moving forward. I will be happy to continue to assist but would lean towards a hospice approach at this juncture. 2. Cytopenias. The patient is chronically at risk for anemia and thrombocytopenia secondary to his leukemia status. Targeting a hemoglobin of 8.0 would be reasonable with irradiated blood products only. Platelets can be transfused at 10 or sooner if bleeding. His dose of Lovenox has been reduced due to the thrombocytopenia issue and the relatively small size of the pulmonary emboli discovered 1 month ago. Thank you for this interesting consultation. I will continue to follow along. Please call with any further questions. TOTAL TIME SPENT: 60 minutes. Joe Aguayo MD/ nathan JOB #: [id number] CC: Wayne Currie, Attending Physician Wayne Currie, Family Physician
--- NOTE | 2016-07-12 16:45 | CO ---
ADMIT: 06/05/2016 RM/LOC: 306 [facility] MR#: [id number] [address] [address] RHYS KOENIG [address] [place] [address] Consultation SEX: M AGE: 81 : 1935 DATE OF CONSULTATION: 06/05/2016 ATTENDING PHYSICIAN: Wayne Currie CONSULTING PHYSICIAN: Chaya Gaytan MD REASON FOR CONSULTATION: Consultation requested for fever, sepsis, and respiratory insufficiency. HISTORY OF PRESENT ILLNESS: Rhys is a pleasant 81-year-old gentleman. He has a history of O2-dependent COPD for years, recently diagnosed with ALL, treated by Dr. Aguayo of Oncology. He has been receiving chemotherapy, was admitted on May 08, 2016, was doing well until today when he developed a fever up to 101, weakness, and dyspnea, came to the emergency room, pulmonary infiltrates, lactate 2.9, white count 4.9, hyponatremia. Arterial blood gases do not reveal hypercapnia. Oxygen needs did increase, and he has been started on BiPAP at 12/6. PAST MEDICAL HISTORY: Includes a lymphoblastic leukemia, macular degeneration, COPD, oxygen dependent, gastroesophageal reflux, chronic hypertension, BPH, and chronic steroid use. MEDICATIONS: Medicines at home: 1. Metformin. 2. Pravachol. 3. Prilosec. 4. Losartan. 5. Actos. 6. Glipizide. 7. Proventil. 8. Calcium. 9. Vitamin D. 10.Symbicort. 11.Finasteride. 12.Fish oil. 13.Latanoprost. ALLERGIES: NONE. SOCIAL HISTORY: Former smoker. He is . His is in the room. He has been at the care facility. FAMILY HISTORY: Dad of a stroke. REVIEW OF SYSTEMS: Unobtainable. PHYSICAL EXAMINATION: VITAL SIGNS: Temp 100.8, respirations 18 to 20 on BiPAP, heart rate 80, and 110/70. HEENT: Within normal limits. ADMIT: 06/05/2016 RM/LOC: 306 [facility] MR#: [id number] [address] [address] RHYS KOENIG [facility] [place] [address] Consultation SEX: M AGE: 81 : 1935 NECK: No JVD. HEART: Regular rate. LUNGS: Rhonchi. ABDOMEN: Soft. EXTREMITIES: No edema, cyanosis, or clubbing. GENITORECTAL: Deferred. LABORATORY DATA: Lactate 2.9. Hemoglobin 9, platelets 53,000. BUN and creatinine 32 and 1.5. Sodium 128. Chest x-ray, infiltrate. IMPRESSION AND PLAN: 1. Sepsis with recent diagnosis of acute lymphatic leukemia and chemotherapy. Healthcare associated pathogens are concerning. Blood and urine cultures have been done. Rapid viral testing is pending. Appropriate antibiotics have been initiated. 2. Acute respiratory failure, chronic obstructive pulmonary disease, requiring BiPAP. Continue BiPAP, O2 nebs, and steroids. 3. Acute lymphoblastic leukemia with recent chemotherapy. 4. If hypotension develops, we will go ahead with pressor agents. Thank you for having me see him. We will follow along with you. Chaya Gaytan MD/ nathan JOB #: [id number] CC: Wayne Currie, Attending Physician Wayne Currie, Family Physician
== END 2016-06-10 13:50 | disposition short-term general hospital (02) | DRG 871 ==
LOC: ER 15:12 → 3ICU 16:40 → 4PCU 06-08 19:25
PROVIDERS: ADMIT Family Medicine
PROC: 3E033WK Introduction of Immunostimulator into Peripheral Vein, Percutaneous (ICD-10-PCS; 2016-06-06)
PROC: 30233N1 Transfusion of Nonautologous Red Blood Cells into Peripheral Vein, Percutaneous Approach (ICD-10-PCS; principal; 2016-06-07)
DX: A41.9 Sepsis, unspecified organism (principal); J12.3 Human metapneumovirus pneumonia; Z51.5 Encounter for palliative care; J96.01 Acute respiratory failure with hypoxia; E43 Unspecified severe protein-calorie malnutrition; R65.21 Severe sepsis with septic shock; N17.9 Acute kidney failure, unspecified; C91.00 Acute lymphoblastic leukemia not having achieved remission; D61.818 Other pancytopenia; G72.0 Drug-induced myopathy; J44.0 Chronic obstructive pulmonary disease with (acute) lower respiratory infection; E87.1 Hypo-osmolality and hyponatremia; T38.0X5A Adverse effect of glucocorticoids and synthetic analogues, initial encounter; I48.0 Paroxysmal atrial fibrillation; E11.9 Type 2 diabetes mellitus without complications; F32.9 Major depressive disorder, single episode, unspecified; I10 Essential (primary) hypertension; E78.5 Hyperlipidemia, unspecified; K21.9 Gastro-esophageal reflux disease without esophagitis; N40.0 Benign prostatic hyperplasia without lower urinary tract symptoms; H35.30 Unspecified macular degeneration; H91.93 Unspecified hearing loss, bilateral; Z79.4 Long term (current) use of insulin; Z87.891 Personal history of nicotine dependence; Z66 Do not resuscitate; Z86.711 Personal history of pulmonary embolism

== ENCOUNTER 2016-06-10 14:25 | Inpatient (IN) | payer MEDICARE, OTHER | END 2016-06-13 05:00 | disposition E | DRG 945 | DX: Z51.5 Encounter for palliative care (principal); A41.9 Sepsis, unspecified organism; J96.01 Acute respiratory failure with hypoxia; R65.21 Severe sepsis with septic shock; E43 Unspecified severe protein-calorie malnutrition; C91.00 Acute lymphoblastic leukemia not having achieved remission; D61.818 Other pancytopenia; J12.3 Human metapneumovirus pneumonia; G72.0 Drug-induced myopathy; J44.0 Chronic obstructive pulmonary disease with (acute) lower respiratory infection; E11.9 Type 2 diabetes mellitus without complications; I48.0 Paroxysmal atrial fibrillation; T38.0X5A Adverse effect of glucocorticoids and synthetic analogues, initial encounter; F32.9 Major depressive disorder, single episode, unspecified; I10 Essential (primary) hypertension; E78.5 Hyperlipidemia, unspecified; Z66 Do not resuscitate; K21.9 Gastro-esophageal reflux disease without esophagitis; N40.0 Benign prostatic hyperplasia without lower urinary tract symptoms; H35.30 Unspecified macular degeneration; H91.93 Unspecified hearing loss, bilateral; Z79.52 Long term (current) use of systemic steroids; Z79.4 Long term (current) use of insulin; Z86.711 Personal history of pulmonary embolism; Z87.891 Personal history of nicotine dependence ==